=== PATIENT | female | born 1965 | race Caucasian/White ===

== ENCOUNTER → 2022-11-27 07:55 | Outpatient (BNVA) | payer OTHER, SELFPAY | PROVIDERS: PCP Nurse Practitioner Family; Referring Provider Nurse Practitioner Family; Visit Provider Physician Assistant | DX: Z13.89 Encounter for screening for other disorder (principal) ==

== ENCOUNTER → 2022-12-11 08:34 | Outpatient (BNVA) | payer OTHER, SELFPAY | PROVIDERS: PCP Nurse Practitioner Family; Visit Provider Physician Assistant Surgical | DX: Z13.89 Encounter for screening for other disorder (principal) ==

== ENCOUNTER → 2023-01-07 08:34 | Outpatient (BNVA) | payer OTHER, SELFPAY | PROVIDERS: PCP Nurse Practitioner Family; Referring Provider Nurse Practitioner Family; Visit Provider Dietitian, Registered | DX: E66.01 Morbid (severe) obesity due to excess calories (principal); Z68.42 Body mass index [BMI] 45.0-49.9, adult; E10.9 Type 1 diabetes mellitus without complications; Z71.3 Dietary counseling and surveillance | CPT/HCPCS: 97802 ==

== ENCOUNTER → 2023-02-03 08:31 | Outpatient (BNVA) | payer OTHER, SELFPAY | PROVIDERS: PCP Nurse Practitioner Family; Referring Provider Nurse Practitioner Family; Visit Provider Physician Assistant Surgical ==

== ENCOUNTER 2023-03-12 08:19 | Outpatient (AMB) | payer OTHER, SELFPAY ==
--- NOTE | 2023-03-12 08:24 | A.OFFVIS_ITS ---
Intake VS Expanded 03/12/23 08:31 Height 5 ft 7 in Weight 281 lb BMI 44.0 BP 133/64 Blood Pressure Location Rt brachial Blood Pressure Position Sitting Pulse 66 Pulse Source Pulse Oximeter Temp 97.4 F Temperature Source Temporal Artery Scan Pulse Oximetry 97 Oxygen Delivery Method Room Air Body Fat 134.8 Body Fat Percentage 48.0 Free Fat Mass 146.2 Muscle Mass 138.8 Visceral Mass 16.0 Water Mass 104.0 BMR 2,076 Intake Visit Reasons: (OV) F/U [facility] Education Assistant Required: No Allergies No Known Allergies Allergy (Verified 03/12/23 08:30) Medication List - Last Reconciled 03/12/23 by SHELBIE Clark aspirin 81 mg PO DAILY atorvastatin 40 mg PO BEDTIME duloxetine (Cymbalta) 60 mg PO DAILY [HUMALOG INSULIN 28 units subcut (via wearable injectr) DAILY] levothyroxine 224 mcg PO DAILY levothyroxine 112 mcg orally friday; lisinopril 20 mg PO DAILY metoprolol succinate ER 25 mg PO BID trazodone 50 mg PO BEDTIME PRN HPI HPI Comments History of Present Illness Details 57 yo female retu rns for [facility].? She has been seen by Lakshmi Fischer and she is doing well.? Her initia l weight on 3 was 301.4 with a BMI of 47.2.? Mitchell ght today is 281 p ounds with a BMI o f 44.? She has had a weight loss of 20.4 pounds repres enting 6.7 % TBWL. ? She reports BS a re much more withi ng range with her CGM.? Her A1c has decreased from 7.6 to 6.4. ? She rep orts energy is imp roved as well.?She feels as though h er weight loss is steady. She did h ave a little hyper glycemia due corti sone injections 2 weeks ago, that mcqueen s since improved. She has change d her meal plan wi anne discussing t o: Meal plan: Fa irlife RTD 30 gm L unch salad w prote in (3 oz) dinner p rotein (4-5 oz) an d veg low daily ice cream after dinner some nights Drink ing 64 oz water an d 1-2 cans diet co ke daily Exercise plan: Walking in pool 2 x outdoor bike, not tracking calories, pedal a ssist, 15 miles. 1 x per week, weig hts just started n [facility] at [facility]?? PFSH Surgical History Hx of carpal tunnel repair Hx of section Hx of dilation and curettage Hx of eye surgery Hx of knee surgery Hx of wisdom tooth extraction Family History Mother Cancer Father Hypertension Heart disease Sister No problems noted. Sister Cancer Sister No problems noted. Sister No problems noted. Sister No problems noted. Brother Stroke Son No problems noted. Daughter No problems noted. Social History Alcohol intake: current Alcohol intake frequency: a few times a month Patient Tobacco Use Status: Never used Tobacco Review of Systems Const All systems reviewed & are unremarkable except as noted in HPI and below Physical Exam Vital Signs: Last Vital Signs Temp 97.4 F 03/12/23 08:31 Pulse 66 03/12/23 08:31 BP 133/64 03/12/23 08:31 Pulse Ox 97 03/12/23 08:31 Oxygen Delivery Method Room Air 03/12/23 08:31 BMI result Body Mass Index 44.0 Const General: healthy appearing and no acute distress Resp Effort & Inspection: normal respiratory effort Auscultation: clear to auscultation bilaterally Cardio Rate: regular rate Rhythm: regular rhythm GI Auscultation: normal bowel sounds Extrem General: Yes normal to inspection Assessment & Plan Assessment & Plan (1) Morbid obesity: Code(s): E66.01 - Morbid (severe) obesity due to excess calories Plan: Pt has made multiple changes to her meal plan over time based on her needs. SHe has achieved a 20.4 pound weight loss over the last three months 6.7 % TBWL. She will continue to apply what she has learned to her continued weight loss journey. She stated her goal weight is 175 pounds. Coding Level of Care Code Est Pt Level 3 (52519) Diagnoses Morbid obesity E66.01
[2023-03-12 08:31] VITALS: BP 133/64; PULSE 66; TEMP 36.3; O2SAT 97; BMI 44.0
== END 2023-03-12 08:58 | disposition home or self-care (01) ==
PROVIDERS: PCP Nurse Practitioner Family; Visit Provider Physician Assistant Surgical
DX: E66.01 Morbid (severe) obesity due to excess calories (principal); Z68.41 Body mass index [BMI] 40.0-44.9, adult
CPT/HCPCS: 99213

== ENCOUNTER → 2023-03-12 08:19 | Outpatient (BNVA) | payer OTHER, SELFPAY | PROVIDERS: PCP Nurse Practitioner Family; Visit Provider Physician Assistant Surgical ==